=== PATIENT | male | born 1970 | race Caucasian/White ===

== ENCOUNTER 2023-06-13 15:14 | Outpatient (RCR) | payer OTHER ==
[~2023-06-13 15:14] MED LIST: AMLODIPINE BESYL5 MG PO; GLUCOPHAGE1000 MG PO; HYGROTON 2525 MG/TAB PO; METOPROLOL SUC100 M1 PO; PROTONIX TR40 M1 PO
== END 2023-06-28 | disposition home or self-care (01) ==
LOC: PT
DX: M25.562 Pain in left knee (principal)

== ENCOUNTER 2023-06-29 08:00 | Outpatient (RCR) | payer OTHER | END 2023-07-27 | disposition home or self-care (01) | LOC: PT | DX: M25.562 Pain in left knee (principal) ==

== ENCOUNTER → 2023-07-26 | Outpatient (CLI) | payer BC | LOC: LAB 09:22 | DX: E11.9 Type 2 diabetes mellitus without complications (principal) ==

== ENCOUNTER → 2023-11-20 | Outpatient (CLI) | payer BC ==
[2023-11-20 10:12] LABS: CALCIUM 9.6 mg/dL (8.3-10.5)
== END ==
LOC: LAB 09:47
PROVIDERS: Family Medicine
DX: I10 Essential (primary) hypertension (principal); E11.9 Type 2 diabetes mellitus without complications; E78.2 Mixed hyperlipidemia